=== PATIENT | female | born 1965 | race Caucasian/White ===

== ENCOUNTER 2023-02-15 09:37 | Outpatient (CLI) | payer OTHER | END 2023-02-15 09:39 | disposition home or self-care (01) | LOC: NUCLEAR 09:37 | DX: I10 Essential (primary) hypertension (principal); E78.2 Mixed hyperlipidemia; G45.3 Amaurosis fugax; R09.89 Other specified symptoms and signs involving the circulatory and respiratory systems; R01.1 Cardiac murmur, unspecified; R00.2 Palpitations; E11.9 Type 2 diabetes mellitus without complications; E03.9 Hypothyroidism, unspecified ==